=== PATIENT | male | born 1970 | race Two or more races ===

== ENCOUNTER 2019-07-14 13:03 | Inpatient (IN) | payer SELFPAY ==
[~2019-07-14] VITALS: Ht 167.6 cm; Wt 68.0 kg
[2019-07-14] MEDS ORDERED: TETANUS-DIPTH-ACEL PERTUSSIS 0.5ML SYRG IM ONE (13:45)
[2019-07-14] MEDS ORDERED: cefTRIAXone 1GM/50ML D5W 50 ML IV ONE (13:45)
[2019-07-14 15:05] LABS: Basophils # (auto) 0.1 uL; Basophils % (auto) 0.5 % (0.0-2.0); Eosinophils # (auto) 0.2 uL; Eosinophils % (auto) 1.5 % (0.0-7.0); Hematocrit 41.9 % (41.0-53.0); Hemoglobin 13.6 g/dL (13.5-17.5); Lymphocytes # (auto) 1.5 uL; Mean Corpuscular Hemoglobin 31.6 pg (28.0-32.0); Mean Corpuscular Hgb Conc. 32.4 g/dL (32.0-36.0); Mean Corpuscular Volume 97.6 fL (80.0-100.0); Monocytes # (auto) 1.4 uL; Monocytes % (auto) 11.4 % (0.0-12.0); Neutrophils # (auto) 9.1 uL; Neutrophils % (auto) 74.6 % (37.0-80.0); Platelet Count (auto) 314 10^3/uL (140-450); Red Blood Cells 4.29 10^6/uL (4.5-5.90); Red Cell Distribution Width 13.2 % (11.8-14.3); White Blood Cell 12.1 10^3/uL (4.4-10.8)
[2019-07-14] MEDS ORDERED: CLINDAMYCIN 600MG IV 50 ML IV ONE (15:15)
[2019-07-14 15:38] LABS: Alanine Aminotransferase 26 U/L (16-61); Albumin 2.8 g/dL (3.4-5.0); Anion Gap 6 (5-15); Aspartate Aminotransferase 24 U/L (15-37); BUN/Creatinine Ratio 17.6; Blood Urea Nitrogen 15 mg/dL (7-18); Calcium 8.7 mg/dL (8.5-10.1); Carbon Dioxide 23 mmol/L (21-32); Chloride 108 mmol/L (98-107); GFR African American 125 mL/min; GFR Non-African American 103 mL/min; Glucose 88 mg/dL (74-106); Potassium 4.1 mmol/L (3.5-5.1); Sodium 137 mmol/L (136-145)
[2019-07-14 15:40] LABS: Alkaline Phosphatase 122 U/L (45-117); Bilirubin, Total 0.2 mg/dL (0.2-1.0); Total Protein 8.1 g/dL (6.4-8.2)
[2019-07-14] MEDS ORDERED: SODIUM CHLORIDE 0.9% 1,000 ML IV ONE (16:45)
[2019-07-14] MEDS ORDERED: ONDANSETRON HCL 4 MG/2 ML VIAL IV PRN (16:45)
[2019-07-14] MEDS ORDERED: ACETAMINOPHEN 500 MG TAB PO PRN (16:45)
[2019-07-14] MEDS ORDERED: VANCOMYCIN PER PHARMACY 0 MG IV SCH (16:45)
[2019-07-14] MEDS ORDERED: MORPHINE SULF INJ 2 MG/ML SYRINGE 1ML IV PRN (16:45)
[2019-07-14] MEDS ORDERED: NITROGLYCERIN 0.4 MG SL TAB SL PRN (16:45)
[2019-07-14 17:08] LABS: Alcohol, Urine < 3.0 mg/dL (0-5); Amphetamine Screen, Urine POSITIVE (NEGATIVE); Barbiturate Scree,Urine NEGATIVE (NEGATIVE); Benzodiazephine Screen, Urine NEGATIVE (NEGATIVE); Cannabinoid Screen, Urine POSITIVE (NEGATIVE); Cocaine Screen, Urine NEGATIVE (NEGATIVE); Opiate Scree,Urine NEGATIVE (NEGATIVE); Phencyclidine Screen, Urine NEGATIVE (NEGATIVE)
[2019-07-14] MEDS: HYDROcodone-ACET 5/325MG TAB PO PRN (18:46)
[2019-07-14] MEDS: VANCOMYCIN 1GM/250ML 250 ML IV SCH (19:05)
[2019-07-15] MEDS: LORazepam 2MG/ML-1ML VIAL IV PRN (02:02)
[2019-07-15] MEDS: HYDROcodone-ACET 5/325MG TAB PO PRN (02:02)
[2019-07-15] MEDS: VANCOMYCIN 1GM/250ML 250 ML IV SCH ×2 (06:15→18:38)
[2019-07-15 07:29] LABS: Basophils # (auto) 0.1 uL; Basophils % (auto) 1.3 % (0.0-2.0); Eosinophils # (auto) 0.2 uL; Eosinophils % (auto) 2.4 % (0.0-7.0); Hemoglobin 12.5 g/dL (13.5-17.5); Lymphocytes # (auto) 1.3 uL; Mean Corpuscular Hgb Conc. 33.9 g/dL (32.0-36.0); Mean Corpuscular Volume 94.4 fL (80.0-100.0); Monocytes # (auto) 0.9 uL; Monocytes % (auto) 11.5 % (0.0-12.0); Neutrophils # (auto) 5.7 uL; Neutrophils % (auto) 68.8 % (37.0-80.0); Platelet Count (auto) 323 10^3/uL (140-450); Red Blood Cells 3.92 10^6/uL (4.5-5.90); Red Cell Distribution Width 13.3 % (11.8-14.3); White Blood Cell 8.2 10^3/uL (4.4-10.8)
[2019-07-15 07:38] LABS: Calcium 8.2 mg/dL (8.5-10.1)
--- NOTE | 2019-07-15 08:09 | NUR ---
MS admit from ER SIMBA MUKHERJEE admitted to tele/MS after SBAR received. Patient oriented to SUMI VILLASEÑOR, RN primary RN, unit, room 240A, and unit policies regarding patient care and visiting hours. Patient weighed by bedscale and encouraged to call if they need something. All questions and concerns addressed, patient verbalized understanding.
[2019-07-15] MEDS ORDERED: cefTRIAXone 1GM/50ML D5W 50 ML IV SCH (09:00)
[2019-07-15 09:17] VITALS: BP 133/82
[2019-07-15] MEDS: FAMOTIDINE 20 MG TAB PO SCH (10:00)
[2019-07-15] MEDS: MORPHINE SULF INJ 2 MG/ML SYRINGE 1ML IV PRN ×2 (11:49→17:03)
--- NOTE | 2019-07-15 12:37 | NUR ---
Dr. Decker at bedside New orders received and carried out.
[2019-07-15] MEDS ORDERED: IOHEXOL 300 MG/ML 100ML BOTTLE IJ ONE (12:58)
[2019-07-15 13:00] VITALS: BP 126/82
[2019-07-15] MEDS ORDERED: PIPERACILLIN-TAZO 4.5GM 100 ML IV ONE (14:15)
--- NOTE | 2019-07-15 14:30 | NUR ---
WOUND CARE NOTE: Wound care consult received for left hand cellulitis. Patient is a 48 yo male admitted for left hand cellulitis. Patient with no significant medical history. Last Masoud score is 18. Patient with a swollen left thumb. Thinks he may have been bitten by an insect. No open wound noted. Discussed with bedside RN, Beatriz. Patient on IV antibiotics, may benefit from a surgical consult pending test results. No need from wound care team at this time.
[2019-07-15] MEDS: FOLIC ACID 1 MG, MULTIPLE VITAMIN 10 ML, MAGNESIUM SULF SDV 50% 8 MEQ, THIAMINE INJ 100... INJ SCH ×5 (14:36)
[2019-07-15 16:38] LABS: Hepatitis B Surface Antibody Positive; Hepatitis B Surface Antigen Negative (Negative)
[2019-07-15 16:51] VITALS: BP 129/80
[2019-07-15 17:17] LABS: Hepatitis A Total Antibody Positive
--- NOTE | 2019-07-15 17:18 | NUR ---
Patient taken to CT
[2019-07-15 17:21] LABS: Hepatitis C Antibody Positive (Negative)
[2019-07-15 17:22] LABS: Hepatitis B Core Total AB Negative
--- NOTE | 2019-07-15 17:24 | NUR ---
Hospitalist cristal Luke notified of positive Hep B antibody result.
--- NOTE | 2019-07-15 19:03 | NUR ---
Closing shift notes Care endorsed to maintenance technician 3rd shift RN
--- NOTE | 2019-07-15 20:00 | NUR ---
Opening Shift Note Received report on the patient. Awake lying in bed. Patient shows no signs of distress at this time. Discussed the plan of care with the patient. Bed in lowest position, side rails up x2, and the call light is within reach. Will continue to monitor.
[2019-07-15] MEDS: PIPERACILLIN-TAZOB 3.375GM 100 ML IV SCH (20:07)
[2019-07-15 22:00] VITALS: BP 130/80
[2019-07-16] MEDS: PIPERACILLIN-TAZOB 3.375GM 100 ML IV SCH ×3 (00:14→11:26)
[2019-07-16] MEDS: MORPHINE SULF INJ 2 MG/ML SYRINGE 1ML IV PRN ×2 (00:14→13:12)
[2019-07-16] MEDS: LORazepam 2MG/ML-1ML VIAL IV PRN (00:15)
--- NOTE | 2019-07-16 00:24 | NUR ---
IV removal IV DC'd with clean sterile technique, catheter fully intact. Pressure dressing applied to site. Patient tolerated well.
--- NOTE | 2019-07-16 00:25 | NUR ---
IV insertion IV access obtained, via clean sterile technique by inserting a 20 gauge catheter at the right forearm after 1 attempt. IV secured properly. No trauma to site. Patient tolerated well.
--- NOTE | 2019-07-16 03:15 | NUR ---
Opening Shift Note Assumed care of patient asleep verbally arousable, awake and alert. No S/S of distress/SOB or pain. Instructed on POC and to call for assist PRN, will continue to monitor for changes Q1hr and PRN.
[2019-07-16 05:00] VITALS: BP 134/85
[2019-07-16 06:06] LABS: INR 1.01 (0.9-1.15); Partial Thromboplastin Time 29.4 sec (23.64-32.05)
[2019-07-16] MEDS: VANCOMYCIN 1GM/250ML 250 ML IV SCH (06:36)
[2019-07-16 08:48] VITALS: BP 120/76
[2019-07-16] MEDS: FAMOTIDINE 20 MG TAB PO SCH (09:19)
--- NOTE | 2019-07-16 10:48 | NUR ---
md españa rounded on patient advised pt of transfer to higher level of care pt expressed concern of not having insurance will consult block and case maker
--- NOTE | 2019-07-16 10:54 | NUR ---
spoke to cynthia pillowcase maker regarding transfer to higher level of care and pt no insurance status
[2019-07-16] MEDS: FOLIC ACID 1 MG, MULTIPLE VITAMIN 10 ML, MAGNESIUM SULF SDV 50% 8 MEQ, THIAMINE INJ 100... INJ SCH ×5 (11:30)
--- NOTE | 2019-07-16 12:54 | NUR ---
Transfer: faxed transfer packet to [facility] transfer center. [phone]
[2019-07-16 13:29] VITALS: BP 116/76
--- NOTE | 2019-07-16 13:30 | NUR ---
pt anxious and restless about "you guys should have my sisters number i gave it to [facility] you guys are keeping it from me" explained to patient that i looked into prior admissions for a contact number the only one i found and i gave to pt is [phone] called number multiple times busy tone noted, per pt that is his old cell number and his "sister" name is Stephanie and her number starts with [phone]. called cynthia social media senior associate into room to speak with pt and his options to obtaining said phone number and transfer. social media senior associate will call [facility] and see if they have his sister number.
--- NOTE | 2019-07-16 15:41 | NUR ---
egg caser cynthia owen recieved pt sister number óscar [phone] GAVE NUMBER TO PT HELPED PT CALL SISTER, SISTER AND PT TALKING
--- NOTE | 2019-07-16 16:42 | NUR ---
pt left ama
[2019-07-16] MEDS ORDERED: VANCOMYCIN 1,250 MG in D5W 5% 250 ML IV SCH (18:00)
== END 2019-07-16 16:40 | disposition left against medical advice (07) | DRG 540 ==
LOC: EDBD 13:03 → ER 13:09 → OVERFLOW 13:10 → EAST 07-15 08:19
PROVIDERS: ADMIT Nurse Practitioner Acute Care; ATTEND Internal Medicine
DX: M86.8X4 Other osteomyelitis, hand (principal); L03.114 Cellulitis of left upper limb; B19.20 Unspecified viral hepatitis C without hepatic coma; F15.90 Other stimulant use, unspecified, uncomplicated; F31.9 Bipolar disorder, unspecified; Z53.29 Procedure and treatment not carried out because of patient's decision for other reasons; F41.9 Anxiety disorder, unspecified; L03.012 Cellulitis of left finger; Z59.0 Homelessness; Z83.3 Family history of diabetes mellitus; Z72.0 Tobacco use
CPT/HCPCS: 36415; 73130; 73140; 73201; 80048; 80053; 80202; 80307; 83605; 85025; 85610; 85730; 86703; 86704; 86706; 86708; 86803; 87040; 87340; 90715; G0378; J0696; J2543; J3490; J7060